=== PATIENT | female | born 2005 | race Caucasian/White ===

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

== ENCOUNTER 2023-09-17 12:30 | Emergency (ER) | payer MEDICAID ==
[~2023-09-17] VITALS: Ht 165.1 cm; Wt 50.4 kg
[~2023-09-17 12:30] MED LIST: ESCI5TAB17 PO
[2023-09-17 12:35] VITALS: BP 109/71; PULSE 78; RESP 16; TEMP 97.9; O2SAT 100
[2023-09-17] MEDS ORDERED: NEOM10SO7 RIGHT EAR (14:47)
== END 2023-09-17 14:54 | disposition home or self-care (01) ==
LOC: ER 12:30
DX: H60.91 Unspecified otitis externa, right ear (principal); Z88.8 Allergy status to other drugs, medicaments and biological substances; Z79.899 Other long term (current) drug therapy
CPT/HCPCS: 99282

== ENCOUNTER 2023-10-29 19:02 | Emergency (ER) | payer MEDICAID ==
[~2023-10-29] VITALS: Ht 165.1 cm; Wt 48.6 kg
[~2023-10-29 19:02] MED LIST changes: +NEOM10SO7 RIGHT EAR
[2023-10-29 19:10] VITALS: BP 128/80; PULSE 107; TEMP 97.6; O2SAT 100
[2023-10-29] MEDS ORDERED: ketorolac trometh. 30mg/ml inj. IM ONE (20:10)
[2023-10-29] MEDS ORDERED: CIPR7.5D7 EACH EAR (20:20)
[2023-10-29] MEDS ORDERED: AMOX-580 PO (20:20)
[2023-10-29] MEDS: ondansetron 4mg rapidly disintigrating tab PO ONE (20:43)
[2023-10-29] MEDS: HYDROcodone/acetaminophen 5mg/325mg tablet PO ONE (20:43)
[2023-10-29] MEDS: TETRACAINE 0.5% 4 ML OPHTHALMIC DROPS LEFTEYE ONE (20:44)
[2023-10-29] MEDS: ketorolac tromethamine 15mg/ml inj. IM ONE (20:45)
[2023-10-29 21:19] VITALS: RESP 16
== END 2023-10-29 21:21 | disposition home or self-care (01) ==
LOC: ER 19:02
DX: H60.93 Unspecified otitis externa, bilateral (principal); Z88.7 Allergy status to serum and vaccine; Z88.8 Allergy status to other drugs, medicaments and biological substances; Z79.2 Long term (current) use of antibiotics; Z79.899 Other long term (current) drug therapy
CPT/HCPCS: 96372; 99284; J1885

== ENCOUNTER 2023-10-30 09:05 | Emergency (ER) | payer MEDICAID ==
[~2023-10-30] VITALS: Ht 165.1 cm; Wt 49.2 kg
[~2023-10-30 09:05] MED LIST changes: +AMOX-580 PO; +CIPR7.5D7 EACH EAR
[2023-10-30] MEDS: ondansetron 4mg rapidly disintigrating tab PO ONE (11:07)
[2023-10-30] MEDS: HYDROcodone/acetaminophen 5mg/325mg tablet PO ONE (11:08)
[2023-10-30] MEDS: ibuprofen tablet 400 MG TABLET PO ONE (11:08)
[2023-10-30] MEDS: CefTRIAXone 1000mg IM Kit (w/lidocaine diluent) IM ONE (11:12)
[2023-10-30 11:30] VITALS: BP 137/79; PULSE 95; RESP 18; TEMP 98.3; O2SAT 99
== END 2023-10-30 11:25 | disposition home or self-care (01) ==
LOC: ER 09:05
DX: H60.8X3 Other otitis externa, bilateral (principal); Z79.899 Other long term (current) drug therapy; Z79.2 Long term (current) use of antibiotics; Z91.048 Other nonmedicinal substance allergy status
CPT/HCPCS: 96372; 99284; J0696